=== PATIENT | male | born 1970 | race African-American/Black ===

== ENCOUNTER 2018-10-30 14:23 | Emergency (ER) | payer OTHER ==
[~2018-10-30] VITALS: Ht 177.8 cm; Wt 86.2 kg
[~2018-10-30 14:23] MED LIST: ELIMITE60 GM TP
[2018-10-30 14:39] VITALS: BP 154/89
[2018-10-30] MEDS ORDERED: PENICILLIN V P500 MG PO (14:47)
== END 2018-10-30 15:00 | disposition home or self-care (01) ==
LOC: ER 14:23
DX: K08.89 Other specified disorders of teeth and supporting structures (principal); R51 Headache